=== PATIENT | male | born 1970 ===

== ENCOUNTER 2016-10-01 08:01 | Emergency (ER) | payer BC ==
[2016-10-01 08:18] VITALS: BP 134/87
--- NOTE | 2016-10-01 09:35 | UC ---
Respiratory Complaint HPI - HPI Summary HPI Summary: OVER A WEEK OF COUGH AND CONGESTION. DENIES FEVER, ST, EAR PAIN, N/V/D. QUIT SMOKING 3 WEEKS AGO. - History of Current Complaint Chief Complaint: UCRespiratory Stated Complaint: CHEST CONGESTION Time Seen by Provider: 10/01/16 09:20 Hx Obtained From: Patient Onset/Duration: Gradual Onset, Lasting Days, Still Present Timing: Constant Severity Initially: Moderate Severity Currently: Moderate Pain Intensity: 0 Pain Scale Used: 0-10 Numeric Character: Cough: Productive Aggravating Factors: Nothing Alleviating Factors: Nothing Associated Signs And Symptoms: Positive: URI, Nasal Congestion. Negative: Dyspnea, Fever, Chills, Pleuritic Chest Pain, Wheezing, Hemoptysis, Dizziness, Calf Pain, Calf Swelling, Edema, Hoarseness, Sinus Discomfort - Allergies/Home Medications Allergies/Adverse Reactions: Allergies Allergy/AdvReac Type Severity Reaction Status Date / Time No Known Allergies Allergy Verified 08/30/12 11:37 Home Medications: Home Medications Nicotine PATCH 21 MG/24 HR* 21 mg TRANSDERM DAILY 10/01/16 [History Confirmed ] PMH/Surg Hx/FS Hx/Imm Hx Endocrine History Of: Denies: Diabetes Cardiovascular History Of: Denies: Hypertension, Congestive Heart Failure Respiratory History Of: Reports: Bronchitis - X1 - 2 MONTHS AGO GI/ History Of: Denies: Renal Disease - Surgical History Surgical History: Yes Surgery Procedure, Year, and Place: REPAIR broken femur. VASECTOMY- LOCAL IN OFFICE - Family History Known Family History: Negative: Hypertension, Diabetes - Social History Alcohol Use: Occasionally Substance Use Type: None Smoking Status (MU): Former Smoker Type: Cigarettes Review of Systems Constitutional: Negative ENT: Negative Respiratory: Cough Cardiovascular: Negative Gastrointestinal: Negative Genitourinary: Negative All Other Systems Reviewed And Are Negative: Yes Physical Exam Triage Information Reviewed: Yes Appearance: Well-Appearing, No Pain Distress, Well-Nourished Vital Signs: Initial Vital Signs Temp 97.8 F 10/01/16 08:14 Pulse 82 10/01/16 08:14 Resp 18 10/01/16 08:14 BP 134/87 10/01/16 08:14 Pulse Ox 97 10/01/16 08:14 Vital Signs Reviewed: Yes Eyes: Positive: Conjunctiva Clear ENT: Positive: Hearing grossly normal Neck: Positive: Supple, Nontender, No Lymphadenopathy Respiratory Exam: Normal Cardiovascular Exam: Normal Abdomen Description: Positive: Soft Musculoskeletal: Positive: No Edema Neurological: Positive: Alert Psychological: Positive: Age Appropriate Behavior Skin: Negative: rashes UC Diagnostic Evaluation - Laboratory O2 Sat by Pulse Oximetry: 97 Respiratory Course/Dx - Differential Dx/Diagnosis Provider Diagnoses: ACUTE BRONCHITIS Discharge - Discharge Plan Condition: Stable Disposition: HOME Prescriptions: Azithromycin [Azithromycin 500 MG TAB] 500 mg PO DAILY #5 tab Patient Education Materials: Acute Bronchitis (ED) Referrals: No Primary Care Phys,NOPCP [Primary Care Provider] - Additional Instructions: CONGRATULATIONS ON QUITTING SMOKING! YOUR SYMPTOMS MAY BE DUE TO A VIRAL INFECTION IN CONJUNCTION WITH YOUR RECENT TOBACCO CESSATION. IF THIS IS THE CASE THE ANTIBIOTICS WILL NOT HAVE ANY EFFECT. HOWEVER GIVEN THE LENGTH OF TIME YOU HAVE BEEN SICK WE WILL COVER YOU WITH AZITHROMYCIN. YOU MAY CHOOSE TO DELAY STARTING THE MEDICATION FOR A FEW DAYS TO SEE IF YOU TURN THE CORNER. IF YOU DO START THE MEDICATION TAKE IT FOR THE FULL 5 DAYS TO PREVENT DEVELOPING ANTIBIOTIC RESISTANCE. CALL THE NUMBER BELOW FOR ASSISTANCE IN ESTABLISHING WITH A PCP An additional resource available to assist in finding the appropriate physician for your health care needs is [facility] ([facility]). You may contact them by calling [phone].
== END 2016-10-01 09:43 | disposition home or self-care (01) ==
LOC: UCEAST 08:01
DX: J20.9 Acute bronchitis, unspecified (principal); F17.200 Nicotine dependence, unspecified, uncomplicated
CPT/HCPCS: 99202; G0463